=== PATIENT | male | born 1960 | race Caucasian/White ===

== ENCOUNTER 2022-07-13 05:51 | Day surgery (SDC) | payer OTHER ==
[2022-07-09 10:57] LABS: BASOPHILS % (AUTO) 0.7 % (0-1); EOSINOPHILS # (AUTO) 0.1 X10'3 (0-0.9); EOSINOPHILS % (AUTO) 2.1 % (0-6); LYMPHOCYTES # (AUTO) 2.2 X10'3 (1.1-4.8); LYMPHOCYTES % (AUTO) 30.5 % (21-51); MEAN CORPUSCULAR HEMOGLOBIN 31.4 PG (27.0-31.0); MEAN CORPUSCULAR HGB CONC 34.9 g/dL (33.0-36.5); MEAN CORPUSCULAR VOLUME 89.9 FL (78-98); MEAN PLATELET VOLUME 7.1 FL (7.4-10.4); MONOCYTES # (AUTO) 0.6 X10'3 (0-0.9); NEUTROPHILS # (AUTO) 4.2 X10'3 (1.8-7.7); NEUTROPHILS % (AUTO) 58.7 % (42-75); PRE OP HEMATOCRIT 45.3 % (42.0-52.0); PRE OP HEMOGLOBIN 15.8 g/dL (14.0-17.9); PRE OP PLATELET COUNT 308 X10'3 (140-440); RED BLOOD COUNT 5.04 X10'6 (4.70-6.10); RED CELL DISTRIBUTION WIDTH 12.9 % (11.5-14.5)
[2022-07-09 11:07] LABS: ALBUMIN 4.1 G/DL (3.4-5.0); ALBUMIN/GLOBULIN RATIO 1.1 (1.1-1.5); ALKALINE PHOSPHATASE 74 IU/L (46-116); BLOOD UREA NITROGEN 9 MG/DL (7-18); BUN/CREATININE RATIO 9.2 (5.4-32.0); CALCIUM 9.4 MG/DL (8.5-10.1); CHLORIDE 104 MMOL/L (99-107); CREATININE 0.98 MG/DL (0.60-1.10); PRE OP ALT 51 U/L (30-65); PRE OP ANION GAP 8 (8-16); PRE OP AST 26 U/L (10-37); PRE OP BILIRUB, TOTAL 0.5 MG/DL (0.0-1.0); PRE OP GLUCOSE 115 MG/DL (70-104); PRE OP POTASSIUM 4.2 MMOL/L (3.4-5.1); PRE OP SODIUM 139 MMOL/L (135-145); TOTAL CARBON DIOXIDE 26.8 MMOL/L (24-32); TOTAL PROTEIN 7.8 G/DL (6.4-8.2); eGFR 77 ML/MIN
[2022-07-13] VITALS (14 sets, daily range): BP systolic 109–160; BP diastolic 56–87
[~2022-07-13] VITALS: Ht 177.8 cm; Wt 68.9 kg
[~2022-07-13 05:51] MED LIST: NO HOME MEDS; famotidine 20mg tablet PO ONE; ringers solution, lacted 1,000 ML IV SCH
[2022-07-13] MEDS ORDERED: BUPIVAcaine 0.5% inj/PF 30 ML ONE (06:51)
[2022-07-13] MEDS ORDERED: LIDOcaine 1% 30ml preserv. free vial ONE (06:51)
[2022-07-13] MEDS ORDERED: ceFAZolin inj. 2,000 MG in dextrose 5%-water 100 ML IV ONE (07:00)
[2022-07-13] MEDS ORDERED: midazolam 1 mg/ML 2ml injection ONE (07:15)
[2022-07-13] MEDS ORDERED: fentaNYL/PF 50MCG/1 ML 2ML syringe ONE (07:15)
[2022-07-13] MEDS ORDERED: sevoflurane 250ml liquid IH ONE (07:19)
[2022-07-13] MEDS ORDERED: ondansetron/PF 4mg/2ml inj IV PRN (07:20)
[2022-07-13] MEDS ORDERED: morphine 4 MG/ML inj SYRINge IV PRN (07:20)
[2022-07-13] MEDS ORDERED: ringers solution, lacted 1,000 ML IV SCH (07:20)
[2022-07-13] MEDS ORDERED: proCHLORperazine 10 MG/2 ml inj IV PRN (07:20)
[2022-07-13] MEDS ORDERED: morphine 2 MG/ML inj. syringe IV PRN (07:20)
[2022-07-13] MEDS ORDERED: meperidine/PF 25mg/ml syringe IV PRN ×3 (07:20)
[2022-07-13] MEDS ORDERED: acetaminophen 1,000mg/100ml IV 100 ML IV ONE (07:42)
[2022-07-13] MEDS ORDERED: BUPIVAcaine 0.5% inj/PF 30 ml vial IJ ONE (07:46)
[2022-07-13] MEDS ORDERED: ondansetron/PF 4mg/2ml inj ONE (07:55)
[2022-07-13] MEDS ORDERED: LIDOcaine 2% (20mg/ml) 5ml vial ONE (07:55)
[2022-07-13] MEDS ORDERED: neostigmine methylsulfate 1 MG/ML 10ml vial ONE (07:55)
[2022-07-13] MEDS ORDERED: dexamethasone sod phosphate 4mg/ml inj. ONE (07:55)
[2022-07-13] MEDS ORDERED: rocuronium 10mg/ml inj IV ONE (07:55)
[2022-07-13] MEDS ORDERED: glycopyrrolate 0.2mg/ml inj ONE ×2 (07:55→08:43)
[2022-07-13] MEDS ORDERED: propofol inj 20 ML IV ONE (07:55)
[2022-07-13] MEDS ORDERED: ePHEDrine 50MG/ML INJ. ONE (08:13)
[2022-07-13] MEDS ORDERED: meperidine/PF 25mg/ml syringe ONE (08:52)
--- NOTE | 2022-07-13 08:57 | NUR ---
Received from OR via [facility], accompanied by Anesthesiologist DR LOPEZ and report given by Anesthesiologist AND MANAGER BENEFIT. PT VERY DROWSY, NO S/S OF DISTRESS/DISCOMFORT. ABDOMEN W/3 LAP SITES W/BANDAIDS CDI. Addendum: 07/13/22 at 0924 by Ira Barrios RN Amended: Links added.
[2022-07-13] MEDS ORDERED: HYDROcodone/acetaminophen 5mg/325mg tablet PO PRN (09:20)
--- NOTE | 2022-07-13 11:10 | NUR ---
RECEIVED REPORT FROM NAVEED MARTINEZ. PT ARRIVED ON PAS UNIT POST HR SURGERY AWAITING TO BE DISCHARGED. PER DR. MCRAE, PT IS TO VOID 100ML WITH LESS THAN 100ML RESIDUAL IN BLADDER BEFORE D/C. PT HAS 20G IV IN R HAND. WILL CONTINUE TO MONITOR AND PROVIDE D/C EDUCATION.
--- NOTE | 2022-07-13 11:17 | NUR ---
PT DRESSED AND AMBULATES SAFELY, BLADDER SCANNED FOR 149 ML, PT UNABLE TO VOID, PT SENT BACK TO [facility] ROOM 245 A, LISETTE LUCIO ASSUMING CARE OF PT. Addendum: 07/13/22 at 1123 by Ira Barrios RN Amended: Links added.
--- NOTE | 2022-07-13 11:31 | NUR ---
3 ABD BANDAIDS C/D/I. NO BLEEDING OR SWELLING NOTED.
--- NOTE | 2022-07-13 13:07 | NUR ---
PT STILL UNABLE TO URINATE AFTER AMBULATING AND DRINKING FLUIDS. BLADDER SCANNED THE PT AND HE HAD 337 RESIDUAL. EDUCATED PT ON NEED FOR MCLEOD CATHETER AND HE AGREED.
--- NOTE | 2022-07-13 13:47 | NUR ---
MCLEOD CATHETER PLACED AND INDWELLING CATHETER CARE INSTRUCTIONS AND SURE STEP WIPES WERE PROVIDED. CATHETER DRAINED 410ML. PT WILL RETURN TO DR. GALLAGHER OFFICE IN 2 DAYS FOR REMOVAL. PT AND DID NOT HAVE ANY FURTHER QUESTIONS ABOUT D/C INSTRUCTIONS. VSS. 3 ABD BANDAIDS WERE C/D/I, NO SWELLING NOTED. IV IN RIGHT HAND D/C'D. PT WAS BROUGHT DOWN IN WHEELCHAIR TO PRIVATE VEHICLE WITHOUT COMPLICATIONS.
== END 2022-07-13 13:47 | disposition home or self-care (01) ==
LOC: PAS 05:51
PROVIDERS: ATTEND Surgery
DX: K40.90 Unilateral inguinal hernia, without obstruction or gangrene, not specified as recurrent (principal); K40.91 Unilateral inguinal hernia, without obstruction or gangrene, recurrent; Z72.89 Other problems related to lifestyle; F17.220 Nicotine dependence, chewing tobacco, uncomplicated; Z98.52 Vasectomy status; Z98.890 Other specified postprocedural states; Z79.899 Other long term (current) drug therapy
CPT/HCPCS: 36415; 49650; 49651; 80053; 82948; 85025; 93005; C1781; J0131; J0690; J1100; J2175; J2250; J2405; J2704; J2710; J3010; J3490; J7030; J7060; J7120; S0020; S2900; Z7506; Z7508; Z7512; A4215; A4618